=== PATIENT | male | born 1935 | race Caucasian/White ===

== ENCOUNTER 2016-06-10 07:51 | Day surgery (SDC) | payer MEDICARE, BC ==
[2016-06-08 16:19] VITALS: BMI 26.5
[2016-06-10] MEDS ORDERED: LACTATED RINGERS 1,000 ML IV ONE (08:10)
[2016-06-10] MEDS ORDERED: LIDOCAINE 1% 20 ML VIAL (10MG/ML) FOR IV START INTRADERMA ONE (08:10)
[2016-06-10] MEDS ORDERED: MIDAZOLAM 2 MG/2 ML VIAL ONE (08:25)
[2016-06-10] MEDS ORDERED: BUPIVACAINE (PF) 0.5% 30 ML VIAL ONE (08:25)
[2016-06-10] MEDS ORDERED: fentaNYL (PF) 50 MCG/ML 2 ML AMP ONE (08:25)
[2016-06-10] MEDS ORDERED: TRIAMCINOLONE ACETONIDE 40 MG/ML 1 ML VIAL ONE (08:25)
[2016-06-10] MEDS ORDERED: LACTATED RINGERS 1,000 ML IV SCH (08:30)
[2016-06-10 08:36] VITALS: RESP 16; TEMP 97.7
[2016-06-10] MEDS ORDERED: IV FLUID CONTINUATION 1,000 ML IV ONE (08:45)
--- NOTE | 2016-06-10 08:45 | P.PCN ---
Date of Procedure: 06/10/16 Preoperative Diagnosis: Bilateral sacroiliitis Postoperative Diagnosis: Same as above Procedure(s) Performed: Bilateral sacroiliac joint steroid injection under fluoroscopic guidance Anesthesia: MAC Surgeon: Leo Child Pathology: none sent Condition: stable Disposition: PACU Description of Procedure: The patient was seen in the preop holding area consent was obtained then he was brought into the procedure room and placed in prone position. Skin was prepped with ChloraPrep and draped in a sterile manner. Lidocaine 1% was used to numb the skin up at the target points that were chosen as follows: The left sacroiliac joint injection was done first, the C-arm was tilted to the right oblique position and slightly cephalad to superimpose the anterior and posterior joint lines on each other and to get a unified joint line and the target point was at the inferior one third of this joint line. 22-gauge 3-1/2 inch Quincke spinal needle for this procedure and after entering the joint on the left side I injected 2.5 MLS of Marcaine 0.5% +20 mg of Kenalog. After that the right sacroiliac joint injection was done in the same manner. The total dose of 40 mg of Kenalog were injected during this procedure. Patient tolerated procedure well.
[2016-06-10 09:04] VITALS: PULSE 56
[2016-06-10 09:11] VITALS: BP 113/75
--- NOTE | 2016-06-10 09:46 | FL ---
Fluoroscopy HISTORY: Pain 9 seconds fluoroscopy time supplied to the referring clinician. 1 intraoperative C-arm images docume nt the procedure. See dictated report from anesthesia.
== END 2016-06-10 09:26 | disposition home or self-care (01) ==
LOC: ORPAIN 07:51
PROVIDERS: ATTEND Anesthesiology
DX: M46.1 Sacroiliitis, not elsewhere classified (principal); Z88.6 Allergy status to analgesic agent; Z91.041 Radiographic dye allergy status
CPT/HCPCS: J2250; J3301; J3010; G0260

== ENCOUNTER 2016-09-11 07:22 | Day surgery (SDC) | payer MEDICARE, BC ==
[2016-09-09 13:05] VITALS: BMI 26.8
[~2016-09-11 07:22] MED LIST: ALPRAZolam 0.25 MG TAB PO PRN; ALPRAZolam 0.5 MG TAB PO PRN; ATORVASTATIN 80 MG TAB PO STA; NITROGLYCERIN SL TABS 0.4 MG TAB SUBLINGUAL PRN; SODIUM CHLORIDE 0.9% 1,000 ML in EMPTY BAG 1 BAG IV ONE
[2016-09-11 07:48] VITALS: RESP 18
[2016-09-11 07:55] LABS: Basophils % (A) 0 %; CH 34.7; CHCM 34.3; Eosinophils % (A) 0 %; HCT 43.7 % (39.0-53.0); HDW 2.42; Luc % (Auto) 1; Lymphocytes # (A) 1.5 k/uL (1.0-4.8); Lymphocytes % (A) 19 %; MCH 34.8 pg (25.0-35.0); MCHC 34.2 g/dL (31.0-37.0); MCV 101.7 fL (80.0-100.0); Macrocytosis Slight; Monocytes # (A) 0.4 k/uL (0-1.0); Monocytes % (A) 5 %; Neutrophils % (A) 74 %; RDW 13.2 % (11.5-15.5); WBC (Perox) 7.87
[2016-09-11 08:05] LABS: Anion Gap 9 mmol/L; Blood Urea Nitrogen 25 mg/dL (9-20); Calcium 9.8 mg/dL (8.4-10.2); Carbon Dioxide 25 mmol/L (22-30); Chloride 105 mmol/L (98-107); Glucose 128 mg/dL (74-99); Non-African American GFR(MDRD) >60 (>60 ml/min/1.73 sqM); Potassium 4.3 mmol/L (3.5-5.1); Sodium 139 mmol/L (137-145)
[2016-09-11] MEDS ORDERED: LIDOCAINE 2% INJ 20 MG/ML (20 ML MDV) ONE (09:40)
[2016-09-11] MEDS ORDERED: fentaNYL (PF) 50 MCG/ML 2 ML AMP ONE (09:44)
[2016-09-11] MEDS ORDERED: diphenhydrAMINE 50 MG/ML 1 ML VIAL ONE (09:44)
[2016-09-11] MEDS ORDERED: diphenhydrAMINE 50 MG/ML 1 ML VIAL IVP ONE (09:45)
[2016-09-11] MEDS ORDERED: fentaNYL (PF) 50 MCG/ML 2 ML AMP IV ONE (09:45)
[2016-09-11] MEDS ORDERED: VERAPAMIL 2.5 MG/ML 2 ML AMP ONE (09:45)
[2016-09-11] MEDS ORDERED: HEPARIN SODIUM 1,000 UNIT/ML VIAL ONE (09:45)
[2016-09-11] MEDS ORDERED: LIDOCAINE 2% INJ 20 MG/ML SQ ONE (09:50)
[2016-09-11] MEDS ORDERED: VERAPAMIL SYRINGE (5 MG/10 ML) INTRAARTER ONE (09:55)
[2016-09-11] MEDS ORDERED: IOHEXOL 350 MG/ML 125ML BOTTLE ONE (10:11)
[2016-09-11] MEDS ORDERED: IOHEXOL 350 MG/ML 125ML BOTTLE INJ ONE (10:11)
[2016-09-11] MEDS ORDERED: ACETAMINOPHEN TAB 325 MG TAB PO PRN (10:24)
[2016-09-11] MEDS ORDERED: traMADol 50 MG TAB PO PRN (10:24)
[2016-09-11] MEDS ORDERED: RX INFO: IV CONTRAST WAS GIVEN 1 EACH MISC MISCELLANE PRN (10:24)
[2016-09-11] MEDS ORDERED: SODIUM CHLORIDE 0.9% 1,000 ML IV SCH (10:30)
[2016-09-11 12:40] VITALS: TEMP 98.2
[2016-09-11 12:42] LABS: INR 1.2 (<1.1); Partial Thromboplastin Time 38.7 sec (22.0-30.0)
[2016-09-11 13:03] LABS: Cholesterol 149 mg/dL (<200); HDL Cholesterol 52 mg/dL (40-60); Magnesium 2.2 mg/dL (1.6-2.3); Triglycerides 35 mg/dL (<150)
[2016-09-11 13:18] LABS: Hemoglobin A1C 5.3 % (4.2-6.1)
[2016-09-11 13:21] LABS: ALT 31 U/L (21-72); AST 21 U/L (17-59); Alkaline Phosphatase 44 U/L (38-126); Anion Gap 9 mmol/L; Blood Urea Nitrogen 22 mg/dL (9-20); Calcium 9.4 mg/dL (8.4-10.2); Carbon Dioxide 28 mmol/L (22-30); Chloride 104 mmol/L (98-107); Glucose 153 mg/dL (74-99); Non-African American GFR(MDRD) >60 (>60 ml/min/1.73 sqM); Potassium 4.2 mmol/L (3.5-5.1); Sodium 141 mmol/L (137-145); Total Bilirubin 0.9 mg/dL (0.2-1.3); Total Protein 5.8 g/dL (6.3-8.2)
--- NOTE | 2016-09-11 13:26 | CC ---
DATE OF SERVICE: Mr. Chanel is an 80-year-old male with known history of hypertension, hyperlipidemia, who was scheduled to undergo back surgery and because of that, underwent a myocardial perfusion imaging that was consistent with stress-induced ischemia involving the inferior wall. In view of that, recommendation was made regarding cardiac catheterization. The procedure as well as risks and complications were discussed with the patient who is in full understanding and agreement. PROCEDURE: The patient was brought to the color laboratory technician in a fasting semi-sedated state after receiving fentanyl with Benadryl and reaching conscious moderate sedated state. Using Xylocaine anesthesia and Seldinger technique, a 6 Turkish sheath was introduced in the right radial artery. Selective right and left coronary angiography was performed using 5 Turkish, 3-1/2 Bend right and left Sp catheters. Multiple views of the coronary arteries including hemiaxial views were obtained. Following that, a 5 Turkish tight pigtail catheter was introduced in the left ventricle, and a 30-degree CAMILO view of the left ventricle was obtained. Following that, catheter and sheath were removed. Hemostasis was obtained with deployment of a TR band. There was no immediate complication. The patient was returned to his room in stable condition. Of note, the patient had received 4500 units of intravenous heparin as well as intra-arterial verapamil. FINDINGS: FLUOROSCOPY: There is severe calcification involving the left main, proximal LAD and the right coronary artery as well as the left circumflex. LEFT MAIN: This is a large size vessel bifurcating into left circumflex and left anterior descending artery. Left main coronary artery has a 50% to 60% plaque in the distal segment. LEFT ANTERIOR DESCENDING ARTERY: This is a large-size vessel reaching toward the apex with a wrap around apex segment giving rise to 3 diagonal branches. The first one is moderate in caliber. The second and third are small in caliber. The left anterior descending artery is heavily calcified in the proximal and mid segment. After the take off of the first diagonal branch, there is a 20% to 30% plaque. The rest of the vessel has mild ( ) disease. Distally at the apex, there is 99% stenosis. The rest of the vessel has no high-grade stenoses. LEFT CIRCUMFLEX: This is a large nondominant vessel, giving rise to a large obtuse marginal branch. The left circumflex proximally has a 95% stenosis. It is calcified. There is another lesion in the mid obtuse marginal branch of about 40%. The rest of the vessel has no high-grade stenosis. RIGHT CORONARY ARTERY: This is a large dominant vessel, bifurcating distally into PDA and posterolateral segment and branches, heavily calcified in the mid segment, has a 99% stenosis in the mid segment and another 95% stenosis in the distal segment. The flow into the distal PDA and PLV is slow. COLLATERALS: There is collaterals from left coronary system toward the right PDA. LEFT VENTRICULOGRAM: The left ventriculogram was performed in 30-degree CAMILO view and revealed normal left ventricular size and systolic function. Ejection fraction is 55%. There was no significant mitral regurgitation. HEMODYNAMICS: There was no gradient across the aortic valve. The left end-diastolic pressure was 10 mmHg. Duration of the procedure 22 minutes. CONCLUSION: 1. Heavily calcified coronary arteries. 2. Significant disease in the distal left main. 3. Severe triple vessel coronary artery disease. 4. Normal left ventricular size and systolic function. RECOMMENDATIONS: In view of the findings and the anatomy, I have recommended proceeding with evaluation for possible coronary artery bypass grafting. The recommendation was discussed with the patient. We will await the input of the surgical team and depending on that, further recommendation will be made. Those findings and recommendations were discussed with the patient and his family who are in full understanding and agreement.
--- NOTE | 2016-09-11 13:29 | LTR ---
September 11, 2016 MIKEY STALLWORTH MD RE: Yanique Gadiel Alexia Dear Dr. Stallworth: I had the opportunity to perform cardiac catheterization on Mr. Chanel at [facility] on the 11 of September and a full copy of the procedure note will be forwarded to you. In brief, he was found to have heavily calcified coronary arteries with triple vessel coronary artery disease and significant distal left main disease. Based on those findings, I have recommended proceeding with evaluation for possible coronary artery bypass grafting. I will keep you updated on his progress. Thank you again for allowing me the opportunity to participate in his care. Please feel free to call for any questions. Sincerely yours, ROYAL PABLO MD
--- NOTE | 2016-09-11 14:27 | US ---
EXAMINATION TYPE: US carotid duplex BILAT DATE OF EXAM: 09/11/2016 1:00 PM COMPARISON: NONE CLINICAL HISTORY: Pre Op Cardiac surgery. EXAM MEASUREMENTS: RIGHT: Peak Systolic Velocity (PSV) cm/sec ----- Right CCA: 74.9 ----- Right ICA: 82.8 ----- Right ECA: 77.4 ICA/CCA ratio: 1.1 RIGHT: End Diastole cm/sec ----- Right CCA: 7.6 ----- Right ICA: 17.5 ----- Right ECA: 0.0 LEFT: Peak Systolic Velocity (PSV) cm/sec ----- Left CCA: 95.1 ----- Left ICA: 67.8 ----- Left ECA: 70.9 ICA/CCA ratio: 0.7 LEFT: End Diastole cm/sec ----- Left CCA: 14.4 ----- Left ICA: 12.2 ----- Left ECA: 5.0 VERTEBRALS (direction of flow): Right Vertebral: Antegrade Left Vertebral: Antegrade Somewhat tortuous vessels, no significant stenosis. Grayscale, color Doppler, spectral Doppler imaging performed of the carotid arteries. IMPRESSION: No hemodynamic significant stenosis of the proximal internal carotid arteries bilaterall y by Doppler criteria, an indirect measurement of carotid stenosis
[2016-09-11 14:48] LABS: Hepatitis B Surface Ag Index 0.05
[2016-09-11 14:54] LABS: Hepatitis B Core IgM Index 0.03
[2016-09-11 15:05] LABS: Appearance,Urine Clear (Clear); Bilirubin,Urine Negative (Negative); Glucose,Urine (UA) Negative (Negative); Ketones,Urine Negative (Negative); Leukocyte Esterase,Urine Negative (Negative); Nitrite,Urine Negative (Negative); PH, Urine 5.5 (5.0-8.0); Protein,Urine Trace (Negative); UA Billing (MACRO vs. MICRO) CHEM; Urobilinogen,Urine <2.0 mg/dL (<2.0)
[2016-09-11 15:05] LABS: Hepatitis C Virus IgG Index 0.01
[2016-09-11 15:09] LABS: Hepatitis C Virus IgG Ab Negative (Negative)
[2016-09-11 16:21] VITALS: BP 137/72; PULSE 60
[2016-09-11 16:45] LABS: Specific Gravity,Urine >1.050 (1.001-1.035)
--- NOTE | 2016-09-11 17:46 | P.GSCN ---
History of Present Illness Consult date: 09/11/16 Reason for Consult: Severe triple vessel disease, possible surgical revascularization. Requesting physician: Luz Villalpando History of present illness: This 80-year-old gentleman with a history of hypertension and dyslipidemia was seen by cardiology for preoperative evaluation in order to undergo back surgery. He had a pharmacologic myocardial perfusion imaging study which was consistent with stressed induced ischemia involving the inferior wall. Previous to this he had no known history of coronary artery disease. It was recommended that he undergo cardiac catheterization, which he underwent this morning, which demonstrated severe triple vessel coronary artery disease unamenable to stenting. Dr. Chambers from cardiothoracic surgery was consulted for the possibility of surgical revascularization. Extensive discussion was had with the patient and his family, all risks and benefits were explained, and the patient was agreeable to surgery. Review of Systems 14 point review systems was completed and was negative except as noted. 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, thyroid cancer,enlarged prostate,steroid injection to back May 2016 History of Any Multi-Drug Resistant Organisms: None Reported Past Surgical History: Appendectomy, Hernia Repair, Tonsillectomy Additional Past Surgical History / Comment(s): scheduled for back surgery on at [facility],partial thyroidectomy, brain surgery, armaan cataracts Past Anesthesia/Blood Transfusion Reactions: Previous Problems w/ Anesthesia, Motion Sickness Additional Past Anesthesia/Blood Transfusion Reaction / Comm: takes long time to come out of anesthesia Past Psychological History: No Psychological Hx Reported Smoking Status: Never smoker Past Alcohol Use History: None Reported Past Drug Use History: None Reported - Past Family History Sister(s) Family Medical History: Cancer Additional Family Medical History / Comment(s): brain Medications and Allergies Home Medications Medication Instructions Recorded Confirmed Type Cholecalciferol [Vitamin D3] 1,000 unit PO DAILY 08/01/15 09/11/16 History Cranberry Extract [Cranberry] 500 mg PO DAILY 08/01/15 09/11/16 History Finasteride [Proscar] 5 mg PO DAILY 08/01/15 09/11/16 History Folic Acid 1 mg PO DAILY 08/01/15 09/11/16 History Losartan [Cozaar] 25 mg PO DAILY 08/01/15 09/11/16 History Montelukast [Singulair] 10 mg PO DAILY 08/01/15 09/11/16 History Ranitidine HCl [Zantac] 150 mg PO DAILY 08/01/15 09/11/16 History Rosuvastatin Calcium [Crestor] 5 mg PO DAILY 08/01/15 09/11/16 History Tamsulosin [Flomax] 0.4 mg PO DAILY 08/01/15 09/11/16 History Acetaminophen [Tylenol] 650 mg PO Q4H PRN 11/13/15 09/11/16 History Flaxseed Oil [[place]-3 Flaxseed Oil] 500 mg PO DAILY 09/09/16 09/11/16 History traMADol HCl [Ultram] 50 mg PO BID PRN 09/09/16 09/11/16 History Allergies Allergy/AdvReac Type Severity Reaction Status Date / Time Iodinated Contrast Media - Allergy Severe Anaphylaxis Verified 09/11/16 07:35 Oral and [Iodinated Contrast Media - IV Dye] aspirin Allergy facial and Verified 09/11/16 07:35 lips swelling Surgical - Exam Vital Signs Temp Pulse Resp BP Pulse Ox 98.0 F 63 18 157/77 98 09/11/16 07:46 09/11/16 07:46 09/11/16 07:46 09/11/16 07:46 09/11/16 07:46 - General well developed, well nourished, no distress - Eyes PERRL, normal ocular movement - Neck no masses, no bruits, trachea midline - Respiratory normal expansion, normal respiratory effort, clear to auscultation - Cardiovascular Rhythm: regular Heart Sounds: normal: S1, S2 - Abdomen Abdomen: soft, non tender, bowel sounds - Genitourinary Deferred - Rectum Deferred - Integumentary no rash, no growths - Neurologic normal coordination, normal sensation - Musculoskeletal normal gait - Psychiatric oriented to time, oriented to person, oriented to place, speech is normal, memory intact Results - Labs 09/11/16 07:45 09/11/16 12:03 Abnormal Lab Results - Last 24 Hours (Table) 09/11/16 09/11/16 09/11/16 Range/Units 07:45 07:45 12:03 MCV 101.7 H (80.0-100.0) fL APTT 38.7 H (22.0-30.0) sec BUN 25 H (9-20) mg/dL Glucose 128 H (74-99) mg/dL Total Protein (6.3-8.2) g/dL TSH (0.465-4.680) mIU/L Ur Specific Portis (1.001-1.035) Urine Protein (Negative) 09/11/16 09/11/16 09/11/16 Range/Units 12:03 12:03 14:05 MCV (80.0-100.0) fL APTT (22.0-30.0) sec BUN 22 H (9-20) mg/dL Glucose 153 H (74-99) mg/dL Total Protein 5.8 L (6.3-8.2) g/dL TSH <0.015 L (0.465-4.680) mIU/L Ur Specific [place] >1.050 H (1.001-1.035) Urine Protein Trace H (Negative) Microbiology - Last 24 Hours (Table) 09/11/16 11:40 Nasal Screen MRSA/MSSA (ALESSANDRO) - Preliminary Nasal Swab Diabetes panel 09/11/16 09/11/16 09/11/16 Range/Units 07:45 12:03 12:03 Sodium 139 141 (137-145) mmol/L Potassium 4.3 4.2 (3.5-5.1) mmol/L Chloride 105 104 (98-107) mmol/L Carbon Dioxide 25 28 (22-30) mmol/L BUN 25 H 22 H (9-20) mg/dL Creatinine 0.83 0.80 (0.66-1.25) mg/dL Glucose 128 H 153 H (74-99) mg/dL Hemoglobin A1c (4.2-6.1) % Calcium 9.8 9.4 (8.4-10.2) mg/dL AST 21 (17-59) U/L ALT 31 (21-72) U/L Alkaline Phosphatase 44 (38-126) U/L Total Protein 5.8 L (6.3-8.2) g/dL Albumin 3.6 (3.5-5.0) g/dL Triglycerides 35 (<150) mg/dL HDL Cholesterol 52 (40-60) mg/dL 09/11/16 Range/Units 12:03 Sodium (137-145) mmol/L Potassium (3.5-5.1) mmol/L Chloride (98-107) mmol/L Carbon Dioxide (22-30) mmol/L BUN (9-20) mg/dL Creatinine (0.66-1.25) mg/dL Glucose (74-99) mg/dL Hemoglobin A1c 5.3 (4.2-6.1) % Calcium (8.4-10.2) mg/dL AST (17-59) U/L ALT (21-72) U/L Alkaline Phosphatase (38-126) U/L Total Protein (6.3-8.2) g/dL Albumin (3.5-5.0) g/dL Triglycerides (<150) mg/dL HDL Cholesterol (40-60) mg/dL Thyroid panel 09/11/16 Range/Units 12:03 TSH <0.015 L (0.465-4.680) mIU/L Calcium panel 09/11/16 09/11/16 Range/Units 07:45 12:03 Calcium 9.8 9.4 (8.4-10.2) mg/dL Albumin 3.6 (3.5-5.0) g/dL Pituitary panel 09/11/16 09/11/16 09/11/16 Range/Units 07:45 12:03 12:03 Sodium 139 141 (137-145) mmol/L Potassium 4.3 4.2 (3.5-5.1) mmol/L Chloride 105 104 (98-107) mmol/L Carbon Dioxide 25 28 (22-30) mmol/L BUN 25 H 22 H (9-20) mg/dL Creatinine 0.83 0.80 (0.66-1.25) mg/dL Glucose 128 H 153 H (74-99) mg/dL Calcium 9.8 9.4 (8.4-10.2) mg/dL TSH <0.015 L (0.465-4.680) mIU/L Adrenal panel 09/11/16 09/11/16 Range/Units 07:45 12:03 Sodium 139 141 (137-145) mmol/L Potassium 4.3 4.2 (3.5-5.1) mmol/L Chloride 105 104 (98-107) mmol/L Carbon Dioxide 25 28 (22-30) mmol/L BUN 25 H 22 H (9-20) mg/dL Creatinine 0.83 0.80 (0.66-1.25) mg/dL Glucose 128 H 153 H (74-99) mg/dL Calcium 9.8 9.4 (8.4-10.2) mg/dL Total Bilirubin 0.9 (0.2-1.3) mg/dL AST 21 (17-59) U/L ALT 31 (21-72) U/L Alkaline Phosphatase 44 (38-126) U/L Total Protein 5.8 L (6.3-8.2) g/dL Albumin 3.6 (3.5-5.0) g/dL Assessment and Plan (1) Coronary artery disease Status: Acute (2) Hypertension Status: Acute (3) Dyslipidemia Status: Acute Plan: The patient was seen and examined in the extended stay unit by Dr. Chambers. Preoperative testing was ordered. Dr. Chambers had a lengthy discussion with the patient regarding surgery, all risks and benefits were explained. The patient will be discharged home from the extended stay unit with an appointment in 1 week to follow up with Dr. Chambers for further planning regarding coronary artery bypass graft surgery. In addition the patient refused to comply completely with pulmonary function testing, an appointment was made in one week with Dr. Pfeiffer for pulmonology workup prior to surgery. Surgery date and more recommendations will be coming depending on preoperative testing results. Thank you Dr. Villalpando for this consult. We look forward to participating with you in the care of your patient. Time with Patient: Greater than 30
[2016-09-11] MEDS ORDERED: METOPROLOL TARTRATE 25 MG TAB PO SCH (21:00)
--- NOTE | 2016-09-12 08:01 | ECHOF ---
Referral Reason:Pre op Cardiac surgery MEASUREMENTS -------- HEIGHT: 177.8 cm WEIGHT: 84.8 kg BP: RVIDd: 3.3 cm (< 3.3) IVSd: 1.2 cm (0.6 - 1.1) LVIDd: 4.7 cm (3.9 - 5.3) LVPWd: 1.2 cm (0.6 - 1.1) IVSs: 1.6 cm LVIDs: 3.0 cm LVPWs: 2.0 cm LA Diam: 3.7 cm (2.7 - 3.8) LAESV Index (A-L): 34.88 ml/m Ao Diam: 4.1 cm (2.0 - 3.7) AV Cusp: 2.4 cm (1.5 - 2.6) MV EXCURSION: 14.577 mm (> 18.000) MV EF SLOPE: 38 mm/s (70 - 150) EPSS: 1.0 cm MV E García: 0.73 m/s MV DecT: 337 ms MV A García: 1.02 m/s MV E/A Ratio: 0.72 AV maxP.64 mmHg AV meanP.40 mmHg RAP: 5.00 mmHg RVSP: 33.10 mmHg FINDINGS -------- Sinus rhythm. This was a technically adequate study. The left ventricular size is normal. There is borderline concentric left ventricular hypertrophy. Overall left ventricular systolic function is normal with, an EF between 55 - 60 %. The right ventricle is mildly enlarged. LA is midly dilated 29-33ml/m2. The right atrium is normal in size. There is mild aortic valve sclerosis. There is mild aortic regurgitation. The mitral valve leaflets are mildly thickened. Mild mitral annular calcification present. Mild mitral regurgitation is present. Mild tricuspid regurgitation present. Right ventricular systolic pressure is normal at < 35 mmHg. The pulmonic valve was not well visualized. There is no pulmonic regurgitation present. The aortic root is dilated measuring 4.1cm. The inferior vena cava is mildly dilated. There is no pericardial effusion. CONCLUSIONS -------- 1. Sinus rhythm. 2. Mild mitral regurgitation is present. 3. Mild tricuspid regurgitation present. 4. Right ventricular systolic pressure is normal at < 35 mmHg. 5. The pulmonic valve was not well visualized. 6. The aortic root is dilated measuring 4.1cm. 7. The inferior vena cava is mildly dilated. 8. There is no pericardial effusion. 9. This was a technically adequate study. 10. There is borderline concentric left ventricular hypertrophy. 11. Overall left ventricular systolic function is normal with, an EF between 55 - 60 %. 12. LA is midly dilated 29-33ml/m2. 13. There is mild aortic valve sclerosis. 14. There is mild aortic regurgitation. 15. The mitral valve leaflets are mildly thickened. 16. Mild mitral annular calcification present. BUNCH BREAKER: Fela White RDCS
[2016-09-12] MEDS ORDERED: NON-FORMULARY DRUG (Rosuvastatin Calcium [Crestor] 5 MG) PO SCH (09:00)
[2016-09-12] MEDS ORDERED: MONTELUKAST 10 MG TAB PO SCH (09:00)
[2016-09-12] MEDS ORDERED: TAMSULOSIN 0.4 MG CAP.ER.24H PO SCH (09:00)
[2016-09-12] MEDS ORDERED: NON-FORMULARY DRUG (Cranberry Extract [Cranberry] 500 MG) PO SCH (09:00)
[2016-09-12] MEDS ORDERED: FLAXSEED OIL PO SCH (09:00)
[2016-09-12] MEDS ORDERED: LOSARTAN 25 MG TAB PO SCH (09:00)
[2016-09-12] MEDS ORDERED: NON-FORMULARY DRUG (Ranitidine Hcl [Zantac] 150 MG) PO SCH (09:00)
[2016-09-12] MEDS ORDERED: CHOLECALCIFEROL 1,000 UNIT TAB PO SCH (09:00)
[2016-09-12] MEDS ORDERED: FINASTERIDE 5 MG TAB PO SCH (09:00)
[2016-09-12] MEDS ORDERED: FOLIC ACID 1 MG TAB PO SCH (09:00)
--- NOTE | 2016-09-16 13:45 | P.PN ---
Progress Note - Text LOWER EXTREMITY ARTERIAL DOPPLER: DATE OF SERVICE: 09/11/2016 Reason for study: Preop CABG. Doppler waveforms: Multiphasic bilaterally throughout. Pulse volume recording: Pressure gradients: None. Ankle-brachial indices: Greater than 1 on the right. Cannot be occluded on the left. Toe pressures: on the right, on the left Impression: Flows are essentially normal. Suspect some calcific wall disease but does not affect flow parameters or perfusion..
--- NOTE | 2016-09-16 13:58 | P.VSCSTY ---
Greater Saphenous Vein Mapping This is bilateral lower extremity greater saphenous vein mapping. Date of service 09/11/2016 Vein quality and ultrasound appearance normal. Vein size groin right 5.2 x 3.9 groin left 6.0 x 5.0 High thigh right 7.7 x 5.7 high thigh left 5.4 x 3.4 Mid thigh right 3.9 x 3.1 mid thigh left 3.7 x 2.9 Above-knee right 2.8 x 2.5 above- knee left 2.5 x 2.0 Below knee right 2.8 x 2.5 below-knee left 2.1 x 1.6 Mid calf right 3.8 x 2.6 mid calf left 2.8 x 2.0 Ankle right 3.7 x 2.2 ankle left 2.7 x 1.9 Impression usable bilateral greater saphenous veins. Left lower leg may be a bit small..
== END 2016-09-11 15:45 | disposition home or self-care (01) ==
LOC: CATHCVL 07:22
PROVIDERS: ATTEND Internal Medicine Interventional Cardiology
DX: I25.10 Atherosclerotic heart disease of native coronary artery without angina pectoris (principal); Z01.810 Encounter for preprocedural cardiovascular examination; I25.84 Coronary atherosclerosis due to calcified coronary lesion; I08.3 Combined rheumatic disorders of mitral, aortic and tricuspid valves; I77.1 Stricture of artery; I10 Essential (primary) hypertension; E78.2 Mixed hyperlipidemia; Z79.891 Long term (current) use of opiate analgesic; Z79.899 Other long term (current) drug therapy; Z88.6 Allergy status to analgesic agent; Z91.041 Radiographic dye allergy status
CPT/HCPCS: 93306; 93458; 86900; 86901; 84439; 83880; 80061; 80053; 80048; 80074; 84443; 83036; 83735; 85025; 85610; 85730; 86850; 81003; 87070; 87086; 93970; 93923; 93880; 99152; 99153; C1894; C1769; J2001; J1200; J3010; J1644; Q9967

== ENCOUNTER → 2022-03-02 | Outpatient (CLI) | payer MEDICARE, BC ==
--- NOTE | 2022-03-02 16:13 | US ---
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 Pt states left foot feeling cold Doppler Waveforms: Right: Multiphasic Left: Multiphasic Ankle-Brachial Indices: Right: CNO Left: CNO Toe Brachial Indices: Right: 0.8 Left: 0.9 IMPRESSION: Limitations as described.
== END | disposition home or self-care (01) ==
LOC: RADUSWWP 13:27
PROVIDERS: ATTEND Internal Medicine
DX: I73.9 Peripheral vascular disease, unspecified (principal)
CPT/HCPCS: 93922

== ENCOUNTER 2022-03-18 08:18 | Day surgery (SDC) | payer MEDICARE, BC ==
[~2022-03-18 08:18] MED LIST changes: -ALPRAZolam 0.25 MG TAB PO PRN; -ALPRAZolam 0.5 MG TAB PO PRN; -ATORVASTATIN 80 MG TAB PO STA; +FAMOTIDINE 20 MG/2 ML VIAL IV PRN; +LACTATED RINGERS 1,000 ML IV SCH; -NITROGLYCERIN SL TABS 0.4 MG TAB SUBLINGUAL PRN; -SODIUM CHLORIDE 0.9% 1,000 ML in EMPTY BAG 1 BAG IV ONE
[2022-03-18] MEDS ORDERED: LACTATED RINGERS 1,000 ML IV ONE (09:00)
[2022-03-18 09:03] VITALS: TEMP 98.4
[2022-03-18] MEDS ORDERED: ONDANSETRON 4 MG/2 ML VIAL ONE (09:05)
[2022-03-18] MEDS ORDERED: DEXAMETHASONE SOD PHOSPHATE 4 MG/ML 1 ML VIAL IVP ONE (09:23)
[2022-03-18] MEDS ORDERED: ONDANSETRON 4 MG/2 ML VIAL IVP ONE (09:23)
[2022-03-18] MEDS ORDERED: fentaNYL (PF) 50 MCG/ML 2 ML AMP ONE (10:31)
[2022-03-18] MEDS ORDERED: diphenhydrAMINE 50 MG/ML 1 ML VIAL ONE (10:31)
[2022-03-18] MEDS ORDERED: MIDAZOLAM 2 MG/2 ML VIAL ONE (10:31)
[2022-03-18] MEDS ORDERED: LIDOCAINE 1%-EPI 1:100,000 20 ML VIAL SQ ONE (10:35)
[2022-03-18] MEDS ORDERED: BACITRACIN ZINC 500 UNIT/GM OINT 28.4 GM TUBE TOPICAL ONE (10:57)
--- NOTE | 2022-03-18 12:06 | P.OP ---
Date of Procedure: 03/18/22 Preoperative Diagnosis: Right ear lesion Postoperative Diagnosis: Same Procedure(s) Performed: Wedge excision left ear lesion with complex closure 5.4 cm Anesthesia: MAC Surgeon: Naresh Johnson Estimated Blood Loss (ml): 5 Pathology: other (Left ear lesion) Condition: stable Disposition: PACU Indications for Procedure: This is an 86-year-old white male who has a slowly enlarging left ear lesion. Operative Findings: Nodular rounded pink lesion left ear just above the ear lobe basal cell carcinoma on frozen section with negative margins Description of Procedure: The patient was brought in the operative suite and placed in a supine position. The patient underwent induction of IV sedation after appropriate monitors were placed by the cat operator. The patient was prepped and draped in the usual aseptic fashion. 1% lidocaine with 1-100,000 epinephrine was infused subcutaneously and field block fashion. This was left to work for 7 minutes vasoconstrictive effect. A wedge excision was performed to excise the lesion g rossly entirely and this was sent for frozen section. Frozen sections revealed basal cell carcinoma with negative margins although additional anterior margin was sent for permanent section as the pathologist requested this. The reconstruction was complex due to the full-thickness excision and need for rotation of tissue into the defect. Undermining was performed also. The cartilage was reapproximated with 4-0 Vicryl suture the subcutaneous layer approximated with 5-0 Vicryl suture and skin closed with running locking 4-0 and 5-0 Prolene suture. Bacitracin ointment and sterile dressing was placed. The patient was allowed to emerge from anesthesia having tolerated procedure well and was transferred to the postop recovery area in satisfactory condition.
[2022-03-18 12:25] VITALS: BP 122/77; PULSE 72; RESP 16
== END 2022-03-18 13:08 | disposition home or self-care (01) ==
LOC: OR 08:18
PROVIDERS: ATTEND Otolaryngology
DX: H61.891 Other specified disorders of right external ear (principal); I11.0 Hypertensive heart disease with heart failure; I50.9 Heart failure, unspecified; E78.5 Hyperlipidemia, unspecified; E03.9 Hypothyroidism, unspecified; K21.9 Gastro-esophageal reflux disease without esophagitis; N40.0 Benign prostatic hyperplasia without lower urinary tract symptoms; Z91.041 Radiographic dye allergy status; Z79.82 Long term (current) use of aspirin; Z90.89 Acquired absence of other organs; Z98.890 Other specified postprocedural states
CPT/HCPCS: 69110; 13152; J2250; J1200; J1100; J0690; J2405; J3010; 88305; 88331; 88332